=== PATIENT | female | born 1985 | race Caucasian/White ===

== ENCOUNTER 2019-08-07 15:38 | Emergency (ER) | payer OTHER ==
[2019-08-07 15:57] VITALS: BP 125/82; PULSE 83; TEMP 98.5; BMI 31.8
--- NOTE | 2019-08-07 16:39 | PDOC ---
History of Present Illness - General Chief Complaint: Cold Symptoms Stated Complaint: COLD SYMPTOMS Time Seen by Provider: 08/07/19 16:18 History Source: Patient Exam Limitations: No Limitations - History of Present Illness Initial Comments: 08/07/19 16:44 Chief complaint: Nasal congestion Patient is 34-year-old female, no medical history with 3 days of nasal congestion and some phlegm mostly in the morning and later in the day. No shortness of breath. No headache. No chest pain. No cough. Patient is a smoker. GENERAL/CONSTITUTIONAL: No fever, weakness. dizziness HEAD, EYES, EARS, NOSE AND THROAT: No change in vision. + Nasal congestion, no ear pain or discharge. No sore throat. CARDIOVASCULAR: No chest pain RESPIRATORY: No shortness of breath or cough GASTROINTESTINAL: No pain, nausea, vomiting, diarrhea or constipation GENITOURINARY: No dysuria MUSCULOSKELETAL: No neck or back pain SKIN: No rash NEUROLOGIC: No headache, vertigo, loss of consciousness, or loss of sensation. GENERAL: The patient is awake, alert, and fully oriented, in no acute distress. HEAD: Normal with no signs of trauma. No sinus tenderness EYES: Pupils equal, round and reactive to light, sclera anicteric, conjunctiva clear. ENT: Ears clear, TMs normal, pharynx: Minimal erythema, no exudate, uvula midline, normal speech NECK: supple, no gross lymphadenopathy, 1 tender lymph node left submandibular, no erythema, no neck swelling CHEST: clear, nontender, rr ABD: soft, nontender BACK: no tenderness or signs of injury EXTREMITIES: Normal range of motion, no edema. NEUROLOGICAL: Normal speech, normal gait. SKIN: Warm, Dry 08/07/19 17:42 08/07/19 17:43 Past History - Past Medical History Allergies/Adverse Reactions: Allergies Allergy/AdvReac Type Severity Reaction Status Date / Time No Known Allergies Allergy Verified 08/07/19 15:53 COPD: No Psychiatric Problems: Yes ("admitted 10 times to psych facilities" no meds) - Surgical History Cholecystectomy: Yes (2006) - Psycho Social/Smoking Cessation Hx Smoking History: Current every day smoker Information on smoking cessation initiated: No *Physical Exam - Vital Signs Last Vital Signs Temp Pulse Resp BP Pulse Ox 98.5 F 83 16 125/82 97 08/07/19 15:55 08/07/19 15:55 08/07/19 15:55 08/07/19 15:55 08/07/19 15:55 Medical Decision Making - Medical Decision Making 08/07/19 16:45 34-year-old female, healthy with 3 days of nasal congestion, yellow mucus, mostly in morning and night. No fever, no cough, no sinus tenderness. Mild erythema to the pharynx, will get strep. Had lengthy discussion with patient regarding viral versus bacterial infection. If strep is positive we will treat otherwise supportive care. 08/07/19 17:43 Rapid strep is negative, patient concerned regarding lymph node, fully explained to patient the role of lymph nodes, gave her a handout on enlarged lymph nodes which fully explain that this could be from her virus but if it did not go away by early next week, she needed to follow-up with ENT. Patient understands. Patient is a smoker it was also explained to her that smoking will put her at risk for cancer. Discussed issues, findings, results, applicable medications and treatments and follow-up. All these were understood and all questions were answered Discharge - Discharge Information Problems reviewed: Yes Clinical Impression/Diagnosis: Upper respiratory infection Qualifiers: URI type: unspecified URI Qualified Code(s): J06.9 - Acute upper respiratory infection, unspecified Condition: Stable Disposition: HOME - Admission No - Follow up/Referral - Patient Discharge Instructions Patient Printed Discharge Instructions: DI for Viral Upper Respiratory Infection -- Adult Additional Instructions: Drink 2-3 L of water daily Take Tylenol 650 mg every 4 hours or Motrin 600 mg every 6 hours for fever and pain Return to the nearest ER if short of breath, unable to swallow or feeling sicker Followup with your doctor in one to 2 days If you still feel the bump in your neck, follow-up with the ENT doctor - Post Discharge Activity
== END 2019-08-07 17:17 | disposition home or self-care (01) ==
LOC: JERFT 15:38
DX: J06.9 Acute upper respiratory infection, unspecified (principal); F99 Mental disorder, not otherwise specified; F17.210 Nicotine dependence, cigarettes, uncomplicated; Z90.49 Acquired absence of other specified parts of digestive tract
CPT/HCPCS: 87070; 87880; 99281-25

== ENCOUNTER 2024-07-30 19:16 | Emergency (ER) | payer OTHER ==
[2024-07-30 19:41] VITALS: BP 118/62; PULSE 71; RESP 14; TEMP 98.1; BMI 25.8
[2024-07-30] MEDS ORDERED: ACETAMINOPHEN INJECTION 100 ML ONE (19:44)
[2024-07-30] MEDS ORDERED: KETOROLAC TROMETHAMINE 15 MG/ML VIAL ONE (19:45)
[2024-07-30] MEDS: ACETAMINOPHEN 1000 MG/100 ML BAG IVPB ONE (20:10)
[2024-07-30] MEDS: KETOROLAC TROMETHAMINE 15 MG/ML VIAL IVPUSH ONE (20:10)
[2024-07-30] MEDS: LACTATED RINGERS SOLUTION 1000 ML INFUS.BAG IV ONE (20:10)
[2024-07-30 20:16] LABS: BASO % 0.4 % (0-2.0); EOS % 0.5 % (0-4.5); HEMATOCRIT 40.1 % (32.4-45.2); HEMOGLOBIN 12.8 GM/dL (10.7-15.3); LYMPH % 22.8 % (8-40); MCHC 31.9 g/dl (32.0-36.0); MEAN CELL VOLUME 84.5 fl (80-96); MONO % 7.2 % (3.8-10.2); NEUT % 69.1 % (42.8-82.8); PLATELET COUNT 279 10^3/uL (134-434); RBC 4.74 M/mm3 (3.60-5.2); RDW 15.1 % (11.6-15.6); WHITE BLOOD COUNT 12.1 K/mm3 (4.0-10.0)
[2024-07-30 20:19] LABS: VENOUS O2 SATURATION 88.2 % (70-80); VENOUS PCO2 44.1 mmHg (38-52); VENOUS PH 7.392 (7.310-7.410)
[2024-07-30 20:28] LABS: INR 1.08 (0.83-1.09); PROTHROMBIN TIME (PATIENT) 11.8 SEC (9.7-13.0)
[2024-07-30 20:33] LABS: POTASSIUM 3.8 mmol/L (3.5-5.1)
[2024-07-30 20:36] LABS: ALBUMIN 3.9 g/dl (3.4-5.0); BLOOD UREA NITROGEN 10.9 mg/dL (7-18); CALCIUM 9.5 mg/dL (8.5-10.1)
[2024-07-30 20:39] LABS: CREATININE 0.7 mg/dL (0.55-1.3); PHOSPHOROUS 4.5 mg/dL (2.5-4.9)
[2024-07-30 20:40] LABS: BILIRUBIN,TOTAL 0.4 mg/dL (0.2-1)
[2024-07-30 20:41] LABS: TOT PROT 7.2 g/dl (6.4-8.2)
[2024-07-30 20:44] LABS: N-TERMINAL BNP 47.8 pg/ml (5-125)
== END 2024-07-30 21:37 | disposition home or self-care (01) ==
LOC: JER 19:16
PROC: 3E033NZ Introduction of Analgesics, Hypnotics, Sedatives into Peripheral Vein, Percutaneous Approach (ICD-10-PCS; principal; 2024-07-30)
PROC: 3E033GC Introduction of Other Therapeutic Substance into Peripheral Vein, Percutaneous Approach (ICD-10-PCS; 2024-07-30)
DX: R07.9 Chest pain, unspecified (principal)
CPT/HCPCS: 36415; 71045-TC-FY; 80053; 82010; 82803; 83735; 83880; 84100; 84484; 84703; 85025; 85610; 85730; 93005; 93010; 99285-25; J0131

== ENCOUNTER 2025-01-21 19:32 | Observation (INO) | payer OTHER ==
[2025-01-21] MEDS: LACTATED RINGERS SOLUTION 1000 ML INFUS.BAG IV ONE (20:12)
[2025-01-21 20:19] LABS: ABSOLUTE IMMATURE GRANULOCYTES 0.06 x10^3/uL (0.0-0.031); BASOPHILS # 0.04 x10^3/uL (0.01-0.08); EOSINOPHIL % 0.1 % (0.7-5.8); EOSINOPHILS # 0.02 x10^3/uL (0.04-0.36); MCHC 33.2 g/dl (32.2-35.5); MEAN CELL VOLUME 83.0 fl (79.4-94.8); MEAN PLT VOLUME 9.7 fl (9.4-12.3); MONOCYTE # 1.05 x10^3/uL (0.24-0.86); MONOCYTE % 6.6 % (4.7-12.5); RDW 14.8 % (12.1-16.8)
[2025-01-21 20:39] LABS: CO2 23.0 mmol/L (21-32); GLUCOSE,RANDOM 86.0 mg/dL (74-106)
[2025-01-21 20:42] LABS: CREATININE 0.6 mg/dL (0.55-1.3); SGOT/AST 11.0 U/L (15-37); SGPT/ALT 25.0 U/L (13-61)
[2025-01-21 20:43] LABS: TOT PROT 7.2 g/dl (6.4-8.2)
[2025-01-21 20:45] LABS: ALK PHOS 68.0 U/L (45-117)
[2025-01-21 21:30] LABS: HCV DIAGNOSTIC IN-HOUSE W/RFLX NON-REACTIVE (NONREACTIVE); HIV INTERPRETATION NEGATIVE (NEGATIVE)
[2025-01-22] MEDS: SODIUM CHLORIDE 1,000 ML IV STA (00:17)
[2025-01-22 02:19] LABS: EPI CELLS >36 /uL (0-25.1); HYALINE CASTS 1 /uL (0-3.1); URINE APPEARANCE TURBID; URINE BACTERIA 1677 /uL (0-1359); URINE BILIRUBIN NEGATIVE (NEGATIVE); URINE COLOR YELLOW; URINE GLUCOSE (UA) NEGATIVE (NEGATIVE); URINE KETONE NEGATIVE (NEGATIVE); URINE LEUK ESTERASE 3+ (NEGATIVE); URINE NITRITE NEGATIVE (NEGATIVE); URINE PROTEIN 1+ (NEGATIVE); URINE UROBILINOGEN 1.0 mg/dL (0.2-1.0)
[2025-01-22] MEDS ORDERED: CEFTRIAXONE 1 GM/50 ML BAG ONE (02:55)
[2025-01-22] MEDS ORDERED: ONDANSETRON 4 MG/2 ML VIAL ONE (02:55)
[2025-01-22] MEDS ORDERED: ONDANSETRON 4 MG/2 ML VIAL IVPUSH PRN (03:09)
[2025-01-22] MEDS ORDERED: ACETAMINOPHEN 1000 MG/100 ML BAG IVPB PRN (03:10)
[2025-01-22] MEDS ORDERED: METOCLOPRAMIDE HCL INJECTION 10 MG/2 ML VIAL IVPUSH PRN (03:13)
[2025-01-22] MEDS: CEFTRIAXONE 1 GM in DEXTROSE 5%-WATER - 50 ML IVPB ONE (03:26)
[2025-01-22 03:38] LABS: URINE RBC 85.0 /uL (0-23.9); YEAST FEW (NEGATIVE)
[2025-01-22 06:48] VITALS: BMI 25.9
[2025-01-22 09:02] LABS: URINE AMPHETAMINES NEGATIVE (NEGATIVE)
[2025-01-22 09:03] LABS: METHADONE, UR NEGATIVE (NEGATIVE); URINE BARBITURATES NEGATIVE (NEGATIVE); URINE BENZODIAZEPINES NEGATIVE (NEGATIVE)
[2025-01-22 09:05] LABS: COCAINE, UR POSITIVE (NEGATIVE); OPIATES, URI NEGATIVE (NEGATIVE); PHENCYCLIDINE,URINE NEGATIVE (NEGATIVE)
[2025-01-22] MEDS: PRENATAL VITAMINS W/ FOLIC ACID TABLET (FP) PO SCH (10:11)
[2025-01-22] MEDS: ENOXAPARIN NA (PORCINE) 40 MG/0.4 ML DISP.SYRIN SQ SCH (10:11)
[2025-01-22 11:00] LABS: ABSOLUTE IMMATURE GRANULOCYTES 0.06 x10^3/uL (0.0-0.031); BASOPHILS # 0.04 x10^3/uL (0.01-0.08); EOSINOPHIL % 0.3 % (0.7-5.8); EOSINOPHILS # 0.04 x10^3/uL (0.04-0.36); MCHC 33.0 g/dl (32.2-35.5); MEAN CELL VOLUME 83.1 fl (79.4-94.8); MEAN PLT VOLUME 10.2 fl (9.4-12.3); MONOCYTE # 0.93 x10^3/uL (0.24-0.86); MONOCYTE % 7.6 % (4.7-12.5); RDW 14.7 % (12.1-16.8)
[2025-01-22 11:45] LABS: CO2 25.0 mmol/L (21-32); GLUCOSE,RANDOM 65.0 mg/dL (74-106)
[2025-01-22 11:48] LABS: CREATININE 0.6 mg/dL (0.55-1.3); SGOT/AST 11.0 U/L (15-37); SGPT/ALT 24.0 U/L (13-61)
[2025-01-22 11:49] LABS: TOT PROT 7.0 g/dl (6.4-8.2)
[2025-01-22 11:51] LABS: ALK PHOS 71.0 U/L (45-117)
[2025-01-23 09:29] LABS: ABSOLUTE IMMATURE GRANULOCYTES 0.05 x10^3/uL (0.0-0.031); BASOPHILS # 0.04 x10^3/uL (0.01-0.08); EOSINOPHIL % 0.2 % (0.7-5.8); EOSINOPHILS # 0.03 x10^3/uL (0.04-0.36); MCHC 32.8 g/dl (32.2-35.5); MEAN CELL VOLUME 83.5 fl (79.4-94.8); MEAN PLT VOLUME 9.9 fl (9.4-12.3); MONOCYTE # 0.83 x10^3/uL (0.24-0.86); MONOCYTE % 6.6 % (4.7-12.5); RDW 14.6 % (12.1-16.8)
[2025-01-23] MEDS: CEFTRIAXONE 1 GM in DEXTROSE 5%-WATER - 50 ML IVPB SCH (10:11)
[2025-01-23 10:18] LABS: CO2 27.0 mmol/L (21-32); GLUCOSE,RANDOM 99.0 mg/dL (74-106)
[2025-01-23 10:21] LABS: CREATININE 0.6 mg/dL (0.55-1.3); SGOT/AST 12.0 U/L (15-37); SGPT/ALT 23.0 U/L (13-61)
[2025-01-23 10:23] LABS: TOT PROT 7.2 g/dl (6.4-8.2)
[2025-01-23 10:24] LABS: ALK PHOS 69.0 U/L (45-117)
[2025-01-23] MEDS: AZITHROMYCIN 250 MG TABLET PO ONE (13:58)
[2025-01-24 09:02] LABS: ABSOLUTE IMMATURE GRANULOCYTES 0.05 x10^3/uL (0.0-0.031); BASOPHILS # 0.03 x10^3/uL (0.01-0.08); EOSINOPHIL % 0.4 % (0.7-5.8); EOSINOPHILS # 0.04 x10^3/uL (0.04-0.36); MCHC 33.3 g/dl (32.2-35.5); MEAN CELL VOLUME 82.8 fl (79.4-94.8); MEAN PLT VOLUME 9.9 fl (9.4-12.3); MONOCYTE # 0.92 x10^3/uL (0.24-0.86); MONOCYTE % 8.4 % (4.7-12.5); RDW 14.5 % (12.1-16.8)
[2025-01-24 09:50] LABS: CO2 26.0 mmol/L (21-32); GLUCOSE,RANDOM 84.0 mg/dL (74-106)
[2025-01-24 09:53] LABS: CREATININE 0.6 mg/dL (0.55-1.3)
[2025-01-24] MEDS: AMOX TR/POT CLAV 875MG/125MG TABLETS (FP) PO ONE (12:29)
[2025-01-24] MEDS: AMOX TR/POT CLAV 875MG/125MG TABLETS (FP) PO SCH (18:26)
[2025-01-24] MEDS: CEFTRIAXONE 1 GM in DEXTROSE 5%-WATER - 50 ML IVPB ONE (19:55)
[2025-01-24 20:00] VITALS: BP 104/70; PULSE 80; RESP 18; TEMP 97.5
== END 2025-01-25 16:02 | disposition home or self-care (01) ==
LOC: JER 19:32 → JERBED 22:59 → J5S 01-22 05:07
PROVIDERS: ADMIT Hospitalist
DX: O99.321 Drug use complicating pregnancy, first trimester (principal); F14.13 Cocaine abuse, unspecified with withdrawal; O23.41 Unspecified infection of urinary tract in pregnancy, first trimester; N39.0 Urinary tract infection, site not specified; O99.341 Other mental disorders complicating pregnancy, first trimester; F14.180 Cocaine abuse with cocaine-induced anxiety disorder; F19.10 Other psychoactive substance abuse, uncomplicated; O99.331 Smoking (tobacco) complicating pregnancy, first trimester; F31.9 Bipolar disorder, unspecified; F17.210 Nicotine dependence, cigarettes, uncomplicated; K40.90 Unilateral inguinal hernia, without obstruction or gangrene, not specified as recurrent; Z3A.08 8 weeks gestation of pregnancy
CPT/HCPCS: 36415; 76830-TC; 80048; 80053; 80307; 81003; 83735; 84100; 84484; 84703; 85025; 86780; 86803; 87040; 87086; 87389; 87491; 87591; 87637-QW; 87661; 93005; 93010; 96365; 96372; 99285-25; G0378